=== PATIENT | male | born 1965 | race American Indian/Alaskan Native ===

== ENCOUNTER 2018-05-16 15:08 | Emergency (ER) | payer OTHER ==
[2018-05-16 15:23] VITALS: BP 121/67
--- NOTE | 2018-05-16 18:35 | Emergency Department Report ---
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 Patient states he is having pain for a few months but unable to follow up with the dentist because he just started a new job. Is she willing correlate with no improvement in symptoms. Patient denies difficulty swallowing or drooling. States pain is aggravated by eating and 10 out of 10 on pain scale. Patient denies fever, shortness of breath, chest nausea or vomiting or abdominal pain. MD complaint: tooth pain Onset/Timin -: days(s) Location: tooth # (#15 and 13) 1 - dental caries 2 - dental caries Severity: severe Severity scale (0 -10): 10 Quality: stabbing, aching Consistency: constant Improves with: none Worsens with: eating Context- Dental: history of dental caries, poor dental care Associated Symptoms: gum swelling. denies: fever, cough, toothache, pain with swallowing, sore throat, tinnitus, hearing loss, discharge from ear, rhinorrhea - Related Data Previous Rx's Medication Instructions Recorded Last Taken Type Clindamycin [Clindamycin CAP] 300 mg PO Q8H #21 cap 05/16/18 Unknown Rx Naproxen [Naprosyn] 500 mg PO BID #14 tablet 05/16/18 Unknown Rx traMADol [Ultram 50 MG tab] 50 mg PO Q6HR PRN #12 tablet 05/16/18 Unknown Rx Allergies Allergy/AdvReac Type Severity Reaction Status Date / Time Penicillins Allergy Hives Verified 05/16/18 15:20 ED Dental HPI - General Chief complaint: Dental/Oral Stated complaint: (L) FACE SWOLLEN Time Seen by Provider: 05/16/18 18:07 Source: patient Mode of arrival: Ambulatory Limitations: No Limitations - Related Data Previous Rx's Medication Instructions Recorded Last Taken Type Clindamycin [Clindamycin CAP] 300 mg PO Q8H #21 cap 05/16/18 Unknown Rx Naproxen [Naprosyn] 500 mg PO BID #14 tablet 05/16/18 Unknown Rx traMADol [Ultram 50 MG tab] 50 mg PO Q6HR PRN #12 tablet 05/16/18 Unknown Rx Allergies Allergy/AdvReac Type Severity Reaction Status Date / Time Penicillins Allergy Hives Verified 05/16/18 15:20 ED Review of Systems ROS: Stated complaint: (L) FACE SWOLLEN Other details as noted in HPI Constitutional: denies: chills, fever ENT: dental pain. denies: ear pain, throat pain Respiratory: denies: cough, shortness of breath, wheezing Cardiovascular: denies: chest pain, palpitations Gastrointestinal: denies: abdominal pain, nausea, diarrhea Skin: denies: rash, lesions Neurological: denies: headache, weakness, paresthesias Psychiatric: denies: anxiety, depression ED Past Medical Hx - Past Medical History Previous Medical History?: No - Surgical History Past Surgical History?: Yes Hx Appendectomy: Yes - Social History Smoking Status: Current Every Day Smoker Substance Use Type: None - Medications Home Medications: Home Medications Medication Instructions Recorded Confirmed Last Taken Type Clindamycin [Clindamycin CAP] 300 mg PO Q8H #21 cap 05/16/18 Unknown Rx Naproxen [Naprosyn] 500 mg PO BID #14 tablet 05/16/18 Unknown Rx traMADol [Ultram 50 MG tab] 50 mg PO Q6HR PRN #12 tablet 05/16/18 Unknown Rx ED Physical Exam - General Limitations: No Limitations General appearance: alert, in no apparent distress - ENT ENT exam: Present: mucous membranes moist, other (dental caries. #15 and 13, tenderness, surrounding mucosal swelling) - Respiratory Respiratory exam: Present: normal lung sounds bilaterally. Absent: respiratory distress - Cardiovascular Cardiovascular Exam: Present: regular rate, normal rhythm. Absent: systolic murmur, diastolic murmur, rubs, gallop - GI/Abdominal GI/Abdominal exam: Present: soft, normal bowel sounds - Neurological Exam Neurological exam: Present: alert, oriented X3 - Psychiatric Psychiatric exam: Present: normal affect, normal mood ED Course Vital Signs 05/16/18 15:21 Temperature 99.0 F Pulse Rate 71 Respiratory 18 Rate Blood Pressure 121/67 O2 Sat by Pulse 100 Oximetry ED Medical Decision Making - Medical Decision Making This is a 52-year-old male that presents with tooth abscess and left side facial swelling for 4 days. Patient is stable and was examined by me. Given tramadol once in ER. Susceptible of dental caries. Discussed plan with patient. She agreed with ER plan. Discharged home with clindamycin, naproxen, and tramadol. Follow up with dentist in 2-3 days. Critical care attestation.: If time is entered above; I have spent that time in minutes in the direct care of this critically ill patient, excluding procedure time. ED Disposition Clinical Impression: Dental caries, Toothache Disposition: - TO HOME OR SELFCARE Is pt being admited?: No Does the pt Need Aspirin: No Condition: Stable Instructions: Dental Caries (ED), Toothache (ED) Additional Instructions: Complete all days of clindamycin as prescribed for 14 days. Follow up with Dentist in 24-72 hours. Prescriptions: Clindamycin [Clindamycin CAP] 300 mg PO Q8H #21 cap Naproxen [Naprosyn] 500 mg PO BID #14 tablet traMADol [Ultram 50 MG tab] 50 mg PO Q6HR PRN #12 tablet PRN Reason: Pain Referrals: [facility] [Outside] - 3-5 Days [facility] [Outside] - 3-5 Days [facility] [Outside] - 3-5 Days Forms: Work/School Release Form(ED) Time of Disposition: 18:41 Print Language: [place]
== END 2018-05-16 18:59 | disposition home or self-care (01) ==
LOC: ED 15:08
DX: K02.9 Dental caries, unspecified (principal); K06.8 Other specified disorders of gingiva and edentulous alveolar ridge; R22.0 Localized swelling, mass and lump, head; F17.200 Nicotine dependence, unspecified, uncomplicated; Z88.0 Allergy status to penicillin
CPT/HCPCS: 99282